=== PATIENT | male | born 1995 | race Caucasian/White ===

== ENCOUNTER 2021-01-31 07:46 | Emergency (ER) | payer OTHER, SELFPAY ==
--- NOTE | ~2021-01-31 | XR_ITS ---
EXAMINATION: XR CHEST CLINICAL INFORMATION: . Asthma. COMPARISON: None TECHNIQUE: 2 views of the chest were obtained. FINDINGS: No significant abnormality is noted involving the heart, lungs, mediastinum, bony thorax or soft tissues. XR/XR chest 2V IMPRESSION: Unremarkable examination.
[2021-01-31 08:00] VITALS: BP 128/55; PULSE 77; RESP 18; TEMP 36.9; O2SAT 98; BMI 33.7
--- NOTE | 2021-01-31 08:11 | ED.ASTHMA ---
HPI - Asthma General Chief Complaint: Asthma Stated Complaint: asthma Time Seen by Provider: 01/31/21 08:05 Source: patient Mode of arrival: ambulatory Limitations: no limitations History of Present Illness HPI Narrative: A 5-year-old male with history of mild intermittent asthma presenting to the ER with wheezing and chest tightness that started last night. 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 He started having wheezing and was using his albuterol inhaler. He just ran out of it last night. He woke up this morning with ongoing wheezing and side to come to the ER for further evaluation. He also has a mild dry cough. No fever or chills. No URI symptoms, no COVID exposure. He denies any chest pain or dyspnea on exertion. MD complaint: wheezing Onset (ago): day(s) Severity: mild Context: allergen exposure Associated symptoms: dry cough Asthma History: childhood onset ( Age 17) Related Data Current Asthma Therapy: inhaled bronchodilator ( only as needed, on a regular week he may be uses it twice.) Previous Rx's Medication Instructions Recorded albuterol sulfate 90 mcg/actuation 2 inh INHALATION QID PRN #1 ea 01/31/21 breath activated powder inhaler (ProAir RespiClick) azithromycin 250 mg tablet See Rx Instructions .ROUTE 01/31/21 (Zithromax Z-Armando) .COMPLEX #6 tab prednisone 20 mg tablet 40 mg PO DAILY #10 tab 01/31/21 Allergies Allergy/AdvReac Type Severity Reaction Status Date / Time Unable to Assess Allergy Unverified 01/31/21 08:05 Review of Systems Review of Systems: Constitutional: No Fever, No Chills ENT/Mouth: No sore throat, No Rhinorrhea, No Swallowing Difficulty Cardiovascular: No Chest Pain, No SOB, No Orthopnea, No Edema Respiratory: + Cough, No Sputum, N+Wheezing, No dyspnea Gastrointestinal: No Nausea, No Vomiting, No Diarrhea, No abdominal Pain Musculoskeletal: No joint pain, No Myalgias Skin: No Skin Lesions, No rash Neuro: No Dizziness, No Headache Psych: No Anxiety/Panic, No Depression Heme/Lymph: No Bruising, No Lymphadenopathy PMFSH Social History Social History Alcohol intake: unknown Patient Tobacco Use Status: Never used Tobacco Use of substances other than those prescribed or required for medical reasons: Unknown Advance Directives: No Physical Exam Vital Signs: Vital Signs: Last Vital Signs Temp 98.4 F 01/31/21 08:00 Pulse 96 01/31/21 10: Resp 18 01/31/21 08:00 BP 128/55 L 01/31/21 08:00 Pulse Ox 98 01/31/21 10:27 Body Mass Index 33.7 Appearance: Alert. Oriented X3. No acute distress. Eyes: Pupils equal, round and reactive to light. ENT: Pharynx normal. No tonsillar swelling or exudate. Uvula midline. Neck: Normal inspection. Neck supple. CVS: Normal heart rate and rhythm. Pulses normal. Respiratory: No respiratory distress. Breath sounds With scattered very mild end expiratory wheezes in the upper lobes. No rhonchi, no tachypnea no accessory muscle use. Speaking in complete sentences. Skin: Skin warm and dry. Normal skin color. Normal skin turgor. No rashes. Extremities: No lower extremity edema. No Calf tenderness. Neuro: Oriented X 3. Grossly normal, nonfocal. Course Course Course Narrative: 25-year-old with a history of mild intermittent asthma presenting with wheezing that started last night after exposure to a work irritant. He just ran out of his albuterol inhaler. He has no URI symptoms. On arrival he is stable with oxygen saturation 100% no respiratory distress speaking in complete sentences. He has very minimal expiratory wheezes. Will plan to get an x-ray, COVID swab, and give a albuterol nebulizer treatment along with oral prednisone. Will re-evaluate. Anticipate discharge home. Reevaluation(s) Reevaluation #1: Chest x-ray negative, COVID-19 test is negative. Patient feels improved after short nebulizer treatment. Patient stable for discharge home with treatment for asthma. Patient encouraged follow-up with his PCP. MDM - Asthma Lab Data Labs: Lab Results 01/31/21 Range/Units 08:46 COVID-19 ([facility]) Negative (Negative) COVID-19 Clin Com See Note Discharge Plan Discharge Clinical Impression: Asthma Qualifiers: Asthma severity: mild Asthma persistence: intermittent Asthma complication type: uncomplicated Qualified Code(s): J45.20 - Mild intermittent asthma, uncomplicated Patient Disposition: Home, Self-Care Instructions: Asthma (ED) Additional Instructions: Your COVID test was negative. Your chest x-ray was normal. Take the prescribed antibiotic as directed. Take the prescribed prednisone to help with inflammation and wheezing. Start this tomorrow, as your given the 1st dose today in the ER. Use your rescue inhaler as needed every 4 hours. Follow-up with your doctor as needed. Prescriptions: New prednisone 20 mg tablet 40 mg PO DAILY Qty: 10 RF: 0 ProAir RespiClick 90 mcg/actuation aerosol powdr breath activated 2 inh inhalation QID PRN (Reason: shortness of breath or wheezing) Qty: 1 RF: 0 azithromycin [Zithromax Z-Armando] 250 mg tablet See Rx Instructions .ROUTE .COMPLEX Qty: 6 RF: 0 Stand Alone Forms: Work/School Release Interventions: ED Discharge Assessment Last Done: 01/31/21 10:27 Discharge Date/Time: 01/31/21 10:28
[2021-01-31] MEDS: predniSONE 20 MG TABLET 40 MG PO (08:14)
[2021-01-31 09:09] LABS: COVID-19 Test Negative (Negative); IDNOW Serial# 9DD0AD1C
[2021-01-31] MEDS: Albuterol Sulfate (0.083%) 2.5 MG/3 ML VIAL.NEB INHALE (09:43)
[2021-01-31 09:44] VITALS: PULSE 77; O2SAT 98
[2021-01-31 10:27] VITALS: PULSE 96; O2SAT 98
== END 2021-01-31 10:28 | disposition home or self-care (01) ==
PROVIDERS: Physician Assistant; Emergency Provider Emergency Medicine; PCP Family Medicine
DX: J45.20 Mild intermittent asthma, uncomplicated (principal); Z20.822 Contact with and (suspected) exposure to COVID-19
CPT/HCPCS: 36415; 71046; 87635; 94640; 99284